=== PATIENT | female | born 1955 | race Caucasian/White ===

== ENCOUNTER 2020-05-23 09:03 | Emergency (ER) | payer MEDICARE ==
[~2020-05-23] VITALS: Ht 162.6 cm; Wt 78.1 kg
[2020-05-23 09:09] VITALS: BP 129/73
[2020-05-23] MEDS ORDERED: HYDROcodone/APAP 5/325 TABLET PO PRN (09:30)
[2020-05-23] MEDS ORDERED: HYDROcodone/APAP 5/325 TABLET ONE (09:33)
--- NOTE | 2020-05-23 09:41 | NUR ---
GLF YESTERDA NOTED DEFORMITY R LOWER ARM CO PAIN SAME
--- NOTE | 2020-05-23 11:45 | NUR ---
EVAL SPLINTED AND SLING APPLIED RITU
== END 2020-05-23 12:06 | disposition home or self-care (01) ==
LOC: ED 09:54
DX: S52.571A Other intraarticular fracture of lower end of right radius, initial encounter for closed fracture (principal); W01.0XXA Fall on same level from slipping, tripping and stumbling without subsequent striking against object, initial encounter; Y93.89 Activity, other specified; Y92.410 Unspecified street and highway as the place of occurrence of the external cause; Y99.8 Other external cause status
CPT/HCPCS: 29125; 99284

== ENCOUNTER → 2020-06-01 | Outpatient (CLI) | payer MEDICARE | END | disposition home or self-care (01) | LOC: CFH 10:45 | PROVIDERS: ATTEND Nurse Practitioner | DX: M80.031A Age-related osteoporosis with current pathological fracture, right forearm, initial encounter for fracture (principal) | CPT/HCPCS: 77080 ==